=== PATIENT | male | born 1990 | race Caucasian/White ===

== ENCOUNTER 2016-04-16 07:44 | Emergency (ER) | payer MEDICAID ==
[2016-04-16 08:22] VITALS: BP 104/84; PULSE 66; RESP 18; TEMP 98.6; O2SAT 97
--- NOTE | 2016-04-16 09:12 | UCPHY ---
H & P Time Seen by Provider: 04/16/16 08:47 Patient Type: Established HPI/ROS: This patient complains of a mild burning sensation in his lungs. He describes as stinging. He says that he feels he takes a deep breath any feels very mild wheeze sensation an minimal dyspnea. The symptoms are associated with nasal congestion. The symptoms came on over the past 2 or 3 days. He reports having had asthma as a child when he lived in [place] but since coming [place] he has not had any significant asthma symptoms. ROS: He denies any fevers or chills. No other constitutional complaints HEENT: No ear pain. No throat pain. No dysphonia. No stridor. Pulmonary: No pleuritic pain. No respiratory distress. Cardiovascular: No lightheadedness no leg swelling or pain. 7 point ROS is otherwise negative. Social History: He got a new pet snake-bogray constrictor 2 days ago. Smoking Status: Former smoker Physical Exam: Physical Exam Vital signs are normal. General: No acute distress HEENT: Nose: Clear discharge. No sinus tenderness to percussion. Oropharynx is clear. No dysphonia. No erythema. No stridor. Eyes: Pupils equal and react to light. Extraocular motions are intact. Lungs: Clear to auscultation bilaterally. No obvious wheeze. No rales. No respiratory distress. Cardiac: Regular rate and rhythm with no murmur gallop rub. No lower extremity swelling. Skin: No rash or pallor. Neuro: Alert and oriented x3 with no sensorimotor deficits. Initial differential diagnosis: URI with reactive airway disease, mild asthma secondary to a new pet snake, doubt bacterial bronchitis, viral bronchitis Constitutional: Initial Vital Signs Temperature (C) 37.0 C 04/16/16 08:20 Heart Rate 66 04/16/16 08:20 Respiratory Rate 18 04/16/16 08:20 Blood Pressure 104/84 H 04/16/16 08:20 O2 Sat (%) 97 04/16/16 08:20 O2 Delivery Mode Room Air Allergies/Adverse Reactions: acetaminophen [From Tylenol PM] Allergy (Verified 04/16/16 08:20) diphenhydramine HCl [From Tylenol PM] Allergy (Verified 04/16/16 08:20) hydrocodone bitartrate [From Vicodin] Allergy (Verified 04/16/16 08:20) Home Medications: Medication Instructions Recorded Albuterol Hfa Anes Only [Proair 2 puffs IH Q4 PRN #1 mdi 04/16/16 Hfa Icu (*)] Fluticasone Hfa 220 Mcg [Flovent 2 puffs IH DAILY #1 mdi 04/16/16 220 MCG Hfa MDI (*)] MDM/Departure - MDM Diagnostics: His peak flow is 450 with predicted of 620. Discussion: Findings consistent with URI and mild asthma. I counseled the patient regarding this. No clinical evidence of lower respiratory infection or other complicating factors. - Depart Disposition: Home, Routine, Self-Care Clinical Impression: Asthma Qualifiers: Asthma severity: mild intermittent Asthma complication type: uncomplicated Qualifier Code: (J45.20) Mild intermittent asthma, uncomplicated Instructions: Asthma (ED) Additional Instructions: Diagnosis: Asthma Plan: Albuterol inhaler with spacer for cough, wheeze or shortness of breath Flovent steroid inhaler Monitor your peak flow. Go to the emergency department if he has any significant worsening. Call primary care physician listed below to arrange follow-up appointment for recheck in 5-10 days. Prescriptions: Fluticasone Hfa 220 Mcg [Flovent 220 MCG Hfa MDI (*)] 2 puffs IH DAILY #1 mdi Albuterol Hfa Anes Only [Proair Hfa Icu (*)] 2 puffs IH Q4 PRN #1 mdi PRN Reason: Wheezing Referrals: NONE *PRIMARY CARE P,. [Primary Care Provider] - As per Instructions Otto Swift DO [Doctor of Osteopathy] - As per Instructions - PQRS PQRS Measurement: NA
== END 2016-04-16 09:21 | disposition home or self-care (01) ==
LOC: CED 07:44
DX: J45.20 Mild intermittent asthma, uncomplicated (principal); Z87.891 Personal history of nicotine dependence
CPT/HCPCS: 99214-PO; G0463-PO